=== PATIENT | male | born 1950 | race Caucasian/White ===

== ENCOUNTER 2021-09-25 13:43 | Inpatient (IN) | payer MEDICARE ==
[2021-09-25 14:36] LABS: #Monocytes 0.6 10x3/uL (0.0-1.1); #Neutrophils 8.4 10x3/uL (1.5-8.4); %Basophils 0.3 % (0.0-2.0); %Eosinophils 0.3 % (0.0-6.0); %Lymphocytes 7.6 % (18.0-47.0); %Monocytes 5.9 % (0.0-10.0); %Neutrophils 80.9 % (40.0-75.0); Hemoglobin 9.2 g/dL (13.5-17.5); Mean Corpuscular HGB CONC 31.5 g/dL (32.0-36.0); Mean Corpuscular Hemoglobin 31.8 pg (27.0-33.0); Platelet Count 258 10x3/uL (150-450); RBC Distribution Width 16.9 % (11.5-14.5); Red Blood Cell (RBC) Count 2.89 10x6/uL (4.32-5.72); White Blood Cell (WBC) Count 10.4 10x3/uL (3.5-10.5)
[2021-09-25 14:54] LABS: ALT (SGPT) Less than 6 U/L (8-55); AST (SGOT) 10 U/L (5-34); Albumin 3.6 g/dL (3.4-4.8); Alkaline Phosphatase 63 U/L (40-110); Anion Gap 14 mmol/L (10-20); BUN (Urea Nitrogen) 31 mg/dL (8.4-25.7); Bilirubin, Total 0.3 mg/dL (0.2-1.2); Calc. Creatinine Clearance 0 mL/min (70-130); Calcium 8.3 mg/dL (7.8-10.44); Carbon Dioxide 18 mmol/L (23-31); Chloride 110 mmol/L (98-107); Globulin 2.3 g/dL (2.4-3.5); Glucose 101 mg/dL (83-110); Lipase 28 U/L (8-78); Potassium 4.8 mmol/L (3.5-5.1); Protein, Total 5.9 g/dL (5.8-8.1); Sodium 137 mmol/L (136-145)
[2021-09-25 18:44] LABS: SARS-CoV-2 NAA Rapid Test Not Detected (NotDetected)
[2021-09-25] MEDS ORDERED: Acetaminophen 325 MG TAB PO PRN (20:44)
[2021-09-25] MEDS ORDERED: Ondansetron PF 4 MG/2 ML Vial IVP PRN (20:44)
[2021-09-25] MEDS ORDERED: Senokot S 8.6-50 MG TAB PO PRN (20:44)
[2021-09-25] MEDS ORDERED: Zolpidem Tartrate 5 MG TAB PO PRN (20:44)
[2021-09-25] MEDS ORDERED: Guaifenesin DM 100-10/5 ML UDCUP PO PRN (20:44)
[2021-09-25] MEDS ORDERED: Calcium Carbonate 500 MG ChewTAB PO PRN (20:44)
[2021-09-25] MEDS ORDERED: Polyethylene Glycol 3350 17 GM Packet PO PRN (20:48)
[2021-09-25] MEDS ORDERED: hydrALAZINE 20 MG/ML VIAL SLOW IVP PRN (20:51)
[2021-09-25] MEDS ORDERED: Lactated Ringer's 1,000 ML IV SCH (21:00)
[2021-09-25] MEDS: Thiamine HCl 200 MG/2 ML VIAL SLOW IVP SCH (21:50)
[2021-09-25] MEDS: Tamsulosin HCl 0.4 MG CAP PO SCH (21:50)
[2021-09-25] MEDS: cloNIDine 0.1 MG TAB PO SCH (21:50)
[2021-09-25] MEDS: Montelukast Sodium 10 mg Tablet PO SCH (21:50)
[2021-09-25] MEDS ORDERED: cloNIDine 0.1 MG TAB ONE (21:51)
[2021-09-25] MEDS ORDERED: Thiamine 100 MG TAB ONE (21:51)
[2021-09-25] MEDS ORDERED: Tamsulosin HCl 0.4 MG CAP ONE (21:53)
[2021-09-25] MEDS ORDERED: Thiamine HCl 200 MG/2 ML VIAL ONE (21:58)
[2021-09-25] MEDS ORDERED: Nicotine 14 MG PATCH ONE (23:09)
[2021-09-25] MEDS: Sodium Chloride 0.45% 1,000 ML IV SCH (23:21)
[2021-09-25] MEDS: Nicotine 21 MG PATCH TD SCH (23:21)
[2021-09-25] MEDS: Carbidopa/Levodopa 25-250 mg Tablet PO SCH (23:22)
[2021-09-25] MEDS: Pramipexole Di-HCl 0.25 MG TAB PO SCH (23:22)
[2021-09-25] MEDS ORDERED: traZODone HCl 50 MG TAB ONE (23:58)
[2021-09-25] MEDS ORDERED: Acetaminophen/Codeine 30-300mg Tablet ONE (23:58)
[2021-09-26 03:40] LABS: #Eosinphils 0.1 10x3/uL (0.0-0.5); #Monocytes 0.6 10x3/uL (0.0-1.1); #Neutrophils 6.2 10x3/uL (1.5-8.4); %Basophils 0.4 % (0.0-2.0); %Eosinophils 0.6 % (0.0-6.0); %Lymphocytes 14.4 % (18.0-47.0); %Monocytes 6.6 % (0.0-10.0); %Neutrophils 73.9 % (40.0-75.0); Mean Corpuscular Hemoglobin 33.1 pg (27.0-33.0); Mean Corpuscular Volume 103.3 fl (81.2-95.1); Platelet Count 214 10x3/uL (150-450); RBC Distribution Width 17.1 % (11.5-14.5); Red Blood Cell (RBC) Count 2.42 10x6/uL (4.32-5.72); White Blood Cell (WBC) Count 8.5 10x3/uL (3.5-10.5)
[2021-09-26 04:07] LABS: ALT (SGPT) Less than 6 U/L (8-55); AST (SGOT) 8 U/L (5-34); Albumin 2.9 g/dL (3.4-4.8); Alkaline Phosphatase 40 U/L (40-110); Anion Gap 10 mmol/L (10-20); BUN (Urea Nitrogen) 27 mg/dL (8.4-25.7); Bilirubin, Total 0.3 mg/dL (0.2-1.2); Calc. Creatinine Clearance 0 mL/min (70-130); Calcium 7.6 mg/dL (7.8-10.44); Carbon Dioxide 19 mmol/L (23-31); Chloride 112 mmol/L (98-107); Glucose 99 mg/dL (83-110); Magnesium 1.9 mg/dL (1.6-2.6); Potassium 4.8 mmol/L (3.5-5.1); Protein, Total 4.9 g/dL (5.8-8.1); Sodium 136 mmol/L (136-145)
[2021-09-26 04:19] LABS: Thyroid Stimulating Hormone 0.8355 uIU/mL (0.35-4.94)
[2021-09-26] MEDS: Sodium Chloride 0.45% 1,000 ML IV SCH ×3 (05:24→21:13)
[2021-09-26] MEDS ORDERED: Budesonide 0.5 MG/2 ML NEB ONE (08:56)
[2021-09-26] MEDS ORDERED: MAGNESIUM CITRATE 100 MG PO SCH (09:00)
[2021-09-26] MEDS ORDERED: SELENIUM 200 MCG PO SCH (09:00)
[2021-09-26] MEDS: Budesonide 0.5 MG/2 ML NEB NEB SCH ×2 (09:03→19:08)
[2021-09-26] MEDS ORDERED: Enoxaparin Sodium 40 MG/0.4 ML SYRINGE ONE (09:11)
[2021-09-26] MEDS ORDERED: Amlodipine 5 MG TAB ONE (09:11)
[2021-09-26] MEDS ORDERED: Folic Acid 1 MG TAB ONE (09:11)
[2021-09-26] MEDS ORDERED: Pantoprazole 40 MG VIAL ONE (09:12)
[2021-09-26] MEDS: Amlodipine 5 MG TAB PO SCH (09:30)
[2021-09-26] MEDS: Carbidopa/Levodopa 25-250 mg Tablet PO SCH ×4 (09:30→21:03)
[2021-09-26] MEDS: Folic Acid 1 MG TAB PO SCH (09:30)
[2021-09-26] MEDS: DULoxetine 30 MG CAP PO SCH (09:30)
[2021-09-26] MEDS: Enoxaparin Sodium 40 MG/0.4 ML SYRINGE SC SCH (09:30)
[2021-09-26] MEDS: Pantoprazole 40 MG VIAL IVP SCH (09:30)
[2021-09-26] MEDS: Megestrol Acetate 40 MG TAB PO SCH (09:30)
[2021-09-26] MEDS: pyridOXINE 50 MG (B6) TAB PO SCH (09:30)
[2021-09-26 14:36] VITALS: BMI 21.2
[2021-09-26] MEDS: Tamsulosin HCl 0.4 MG CAP PO SCH (21:03)
[2021-09-26] MEDS: Montelukast Sodium 10 mg Tablet PO SCH (21:03)
[2021-09-26] MEDS: Pramipexole Di-HCl 0.25 MG TAB PO SCH (21:03)
[2021-09-26] MEDS: cloNIDine 0.1 MG TAB PO SCH (21:14)
[2021-09-26] MEDS: Thiamine HCl 200 MG/2 ML VIAL SLOW IVP SCH (21:16)
[2021-09-26] MEDS: Acetaminophen/Codeine 30-300mg Tablet PO PRN ×2 (21:28)
[2021-09-26] MEDS: Nicotine 21 MG PATCH TD SCH (22:04)
[2021-09-26 22:38] LABS: Bilirubin Neg (Negative); Blood, Urine Negative (Negative); Clarity Clear (Clear); Glucose, Urine (Dipstick) Normal (Negative); Ketone, Urine Negative (Negative); Leukocyte Negative (Negative); Nitrite Negative (Negative); Protein, Urine (Dipstick) 30 mg/dl (Neg-Trace); Urobilinogen Normal mg/dL (Less than 2)
[2021-09-26 22:46] LABS: Bacteria/HPF Rare-Few HPF (None Seen); RBC/HPF None Seen HPF (0-3); Squamous Epithelial 0-3 HPF (0-3); WBC/HPF 0-3 HPF (0-3)
[2021-09-26] MEDS: traZODone HCl 50 MG TAB PO PRN ×2 (23:33)
[2021-09-27] MEDS: Cholecalciferol 1,000 UNITS (25 MCG) TAB PO SCH ×2 (02:28→14:27)
[2021-09-27] MEDS: Budesonide 0.5 MG/2 ML NEB NEB SCH (07:25)
[2021-09-27] MEDS ORDERED: SUGAMMADEX SODIUM 200 MG/2 ML VIAL ONE (10:56)
[2021-09-27] MEDS ORDERED: Multivitamin W/ Minerals 1 TAB PO SCH (11:00)
[2021-09-27] MEDS ORDERED: Rocuronium Bromide 10 MG/ML (10ML VIAL) ONE (12:29)
[2021-09-27] MEDS ORDERED: Dexamethasone 20 MG/5 ML VIAL ONE (12:29)
[2021-09-27] MEDS ORDERED: Lidocaine 2% PF 5 ML VIAL ONE (12:29)
[2021-09-27] MEDS ORDERED: EPINEPHrine 1 MG/ML AMP ONE ×2 (12:29→12:34)
[2021-09-27] MEDS ORDERED: PROPOFOL 20 ML ONE (12:29)
[2021-09-27] MEDS ORDERED: Ondansetron PF 4 MG/2 ML Vial ONE (12:29)
[2021-09-27] MEDS ORDERED: Fentanyl 100 MCG/2 ML VIAL ONE (12:29)
[2021-09-27] MEDS ORDERED: Oxymetazoline HCl 0.05% ( 15 ML ) ONE (12:34)
[2021-09-27] MEDS: Amlodipine 5 MG TAB PO SCH (14:27)
[2021-09-27] MEDS: Megestrol Acetate 40 MG TAB PO SCH (14:27)
[2021-09-27] MEDS: pyridOXINE 50 MG (B6) TAB PO SCH (14:27)
[2021-09-27] MEDS: Pantoprazole 40 MG VIAL IVP SCH (14:28)
[2021-09-27] MEDS: DULoxetine 30 MG CAP PO SCH (14:28)
[2021-09-27] MEDS: Enoxaparin Sodium 40 MG/0.4 ML SYRINGE SC SCH (14:28)
[2021-09-27] MEDS: Folic Acid 1 MG TAB PO SCH (14:28)
[2021-09-27] MEDS ORDERED: FLU VACC QS2021-22(65YR UP)/PF 240 MCG/0.7 ML SYRINGE IM ONE (14:45)
[2021-09-27] MEDS: Carbidopa/Levodopa 25-250 mg Tablet PO SCH (14:55)
[2021-09-27 16:07] VITALS: BP 138/58; TEMP 96.9
== END 2021-09-27 17:48 | disposition home or self-care (01) | DRG 147 ==
LOC: CSHERS 13:43 → CSHERHOLD 20:57 → CSHTELE 09-26 11:36
PROVIDERS: ADMIT Student in an Organized Health Care Education/Training Program; ATTEND Internal Medicine
PROC: 0CBM8ZX Excision of Pharynx, Via Natural or Artificial Opening Endoscopic, Diagnostic (ICD-10-PCS; principal; 2021-09-27)
DX: C76.0 Malignant neoplasm of head, face and neck (principal); E44.0 Moderate protein-calorie malnutrition; R64 Cachexia; N17.9 Acute kidney failure, unspecified; C77.0 Secondary and unspecified malignant neoplasm of lymph nodes of head, face and neck; Z20.822 Contact with and (suspected) exposure to COVID-19; R91.1 Solitary pulmonary nodule; G51.0 Bell's palsy; F17.210 Nicotine dependence, cigarettes, uncomplicated; J44.9 Chronic obstructive pulmonary disease, unspecified; N18.30 Chronic kidney disease, stage 3 unspecified; D53.9 Nutritional anemia, unspecified; I12.9 Hypertensive chronic kidney disease with stage 1 through stage 4 chronic kidney disease, or unspecified chronic kidney disease; G25.81 Restless legs syndrome; F32.A Depression, unspecified; R13.10 Dysphagia, unspecified; E86.0 Dehydration; G89.29 Other chronic pain; N40.0 Benign prostatic hyperplasia without lower urinary tract symptoms; I49.3 Ventricular premature depolarization; F90.9 Attention-deficit hyperactivity disorder, unspecified type; G47.30 Sleep apnea, unspecified; F41.9 Anxiety disorder, unspecified; E05.90 Thyrotoxicosis, unspecified without thyrotoxic crisis or storm; Z79.51 Long term (current) use of inhaled steroids; Z88.1 Allergy status to other antibiotic agents; Z88.8 Allergy status to other drugs, medicaments and biological substances; Z79.899 Other long term (current) drug therapy; Z90.49 Acquired absence of other specified parts of digestive tract; Z71.6 Tobacco abuse counseling; Z68.21 Body mass index [BMI] 21.0-21.9, adult
CPT/HCPCS: 36415; 70491; 71045; 80053; 81001; 82607; 82746; 83690; 83735; 84443; 84484; 85025; 86850; 86900; 86901; 88305; 88331; 93005; 94640; C9113; J0171; J0360; J1100; J1650; J2001; J2405; J2704; J3010; J3411; J7120; J7620; J7626; S0179; U0002